=== PATIENT | female | born 1990 | race Caucasian/White ===

== ENCOUNTER 2018-06-22 18:55 | Emergency (ER) | payer OTHER ==
[~2018-06-22] VITALS: Ht 167.6 cm; Wt 106.8 kg
[2018-06-22 19:03] VITALS: TEMP 98
[2018-06-22] MEDS ORDERED: PRENATAL MVI (19:25)
[2018-06-22] MEDS ORDERED: CALCIUM CARBON650 M2 (19:26)
[2018-06-22] MEDS ORDERED: UNISOM25 MG PO (19:26)
[2018-06-22 20:06] LABS: BASO # 0.1 (0.0-0.2); BASO % 0.5 % (0.0-2.0); EOS # 0.1 (0.0-0.7); EOS % 0.6 % (0-4.0); GRAN # 6.3 (1.4-6.5); GRAN % 62.9 % (42.2-75.2); HEMATOCRIT 37.9 % (37.0-47.0); HEMOGLOBIN 12.7 g/dl (12.5-16.0); LYMPH # 2.6 (1.2-3.4); LYMPH % 25.9 % (20.0-51.0); MEAN CELL VOLUME 87 fl (80.0-100.0); MEAN CORPUSCULAR HEMOGLOBIN 29 pg (27.0-31.0); MEAN CORPUSCULAR HGB CONC 34 g/dl (33.0-37.0); MEAN PLATELET VOLUME 11.9 fl (7.4-10.4); MONO % 9.4 % (1.7-9.3); PLATELET COUNT 261 K/mm3 (130-400); RED BLOOD COUNT 4.36 M/mm3 (4.10-5.30); REDCELL DISTRIBUTION WIDTH-CV 13.5 % (11.5-14.5)
[2018-06-22 20:12] LABS: ALBUMIN 3.7 gm/dL (3.5-5.0); BILIRUBIN,TOTAL 0.4 mg/dL (0.0-1.0); CALCIUM 9.9 mg/dL (8.4-10.2); CREATININE, serum 0.55 (0.52-1.25); POTASSIUM 3.5 mmol/L (3.4-5.0); TOTAL PROTEIN 7.2 gm/dL (6.4-8.2)
[2018-06-22 20:50] LABS: COLLECTION METHOD CLEAN CATCH
[2018-06-22 20:57] LABS: PH 7 (5-8); URINE APPEARANCE Hazy; URINE BACTERIA Rare /hpf; URINE BILIRUBIN Negative (NEGATIVE); URINE BLOOD Negative (NEGATIVE); URINE COLOR Yellow; URINE GLUCOSE Negative (NEGATIVE); URINE KETONE 1+ (NEGATIVE); URINE LEUKOCYTE ESTERASE Negative (NEGATIVE); URINE NITRATE Negative (NEGATIVE); URINE PROTEIN(semi-quant) Negative (NEGATIVE); URINE RBC 0-2 /hpf; URINE UROBILINOGEN Negative (NEGATIVE)
--- NOTE | 2018-06-22 21:54 | NUR ---
Pt of , 24wks with twins in ER with complaints of migraine. FHR strip completed in ER per ER physican request. EFM and TOCO explained and applied. Pt denies contactins, LOF or vaginal bleeding. Reports good movement. No contractions per TOCO and pt's report. 2246: called and notified of baby A FHR strip 150bpm, no true accelerations, no decels with moderate variablity noted. Baby B FHR strip 140bpms with 10/10 acceleration, no decels with moderate variability. okay with FHR strip and okay for pt to discharge home from OB standpoint. ER nurse notified.
[2018-06-22] MEDS ORDERED: PHENERGAN 25 TA25 MG PO (22:29)
[2018-06-22 23:20] VITALS: BP 125/79; PULSE 93
== END 2018-06-22 23:23 | disposition home or self-care (01) ==
LOC: COL.ER 18:55
PROVIDERS: Emergency Medicine
DX: G43.909 Migraine, unspecified, not intractable, without status migrainosus (principal)
CPT/HCPCS: J1200; J2550; J7030

== ENCOUNTER 2018-09-08 21:58 | Outpatient (CLI) | payer OTHER ==
[~2018-09-08] VITALS: Ht 165.1 cm; Wt 123.6 kg
[~2018-09-08 21:58] MED LIST: CALCIUM CARBON650 M2; PHENERGAN 25 TA25 MG PO; PRENATAL MVI; UNISOM25 MG PO
[2018-09-08] MEDS ORDERED: NORMODYNE100 MG PO (22:30)
[2018-09-08] MEDS ORDERED: TYLENOL 325MG325 MG PO (22:31)
[2018-09-08 22:45] VITALS: BP 142/90; PULSE 92
[2018-09-08 23:05] VITALS: BP 156/87; PULSE 86
[2018-09-08 23:20] VITALS: BP 167/79; PULSE 86
[2018-09-08] MEDS ORDERED: PROMETRIUM200 M1 PO (23:20)
== END 2018-09-09 00:05 ==
LOC: LDRO 21:58 → LDR 22:08 → LDRO 09-09 00:05
DX: O14.93 Unspecified pre-eclampsia, third trimester (principal); O30.003 Twin pregnancy, unspecified number of placenta and unspecified number of amniotic sacs, third trimester; O99.89 Other specified diseases and conditions complicating pregnancy, childbirth and the puerperium; R51 Headache; Z3A.35 35 weeks gestation of pregnancy
CPT/HCPCS: OP

== ENCOUNTER 2018-09-15 08:58 | Inpatient (IN) | payer OTHER ==
[~2018-09-15] VITALS: Ht 165.2 cm; Wt 123.2 kg
[2018-09-15] VITALS (16 sets, daily range): BP systolic 127–149; BP diastolic 64–95; PULSE 74–95; TEMP 98.3–98.5
[~2018-09-15 08:58] MED LIST changes: +NORMODYNE100 MG PO; +PROMETRIUM200 M1 PO; +TYLENOL 325MG325 MG PO
--- NOTE | 2018-09-15 14:30 | NUR ---
Pt arrives on unit ambulatory with spouse for scheduled csection. Changed into clean gown. EFM and toco x 2 applied. VSS. IV started in LH. Labs drawn. LR infusing. Denies vaginal bleeding, regular ctx and LOF. Reports GFM. Admission assessment completed. Consents signed. Pt updated on POC. Safety reviewed. Bed locked in low position. Call light within reach. No questions or concerns at this time.
[2018-09-15 15:14] LABS: BASO # 0.1 (0.0-0.2); BASO % 0.9 % (0.0-2.0); EOS # 0.1 (0.0-0.7); EOS % 0.9 % (0-4.0); GRAN # 7.2 (1.4-6.5); GRAN % 68.1 % (42.2-75.2); HEMATOCRIT 42.8 % (37.0-47.0); HEMOGLOBIN 13.7 g/dl (12.5-16.0); LYMPH # 2.2 (1.2-3.4); LYMPH % 20.7 % (20.0-51.0); MEAN CELL VOLUME 88 fl (80.0-100.0); MEAN CORPUSCULAR HEMOGLOBIN 28 pg (27.0-31.0); MEAN CORPUSCULAR HGB CONC 32 g/dl (33.0-37.0); MEAN PLATELET VOLUME 13.4 fl (7.4-10.4); MONO # 0.9 (0.1-0.6); MONO % 8.5 % (1.7-9.3); PLATELET COUNT 139 K/mm3 (130-400); RED BLOOD COUNT 4.89 M/mm3 (4.10-5.30); REDCELL DISTRIBUTION WIDTH-CV 14.6 % (11.5-14.5)
[2018-09-16 01:15] VITALS: BP 141/76; PULSE 88; TEMP 98.8
[2018-09-16 04:57] VITALS: BP 139/72; PULSE 80; TEMP 98.9
[2018-09-16 07:00] VITALS: BP 144/93; PULSE 76; TEMP 97.6
--- NOTE | 2018-09-16 11:26 | NUR ---
Initial visit; Parents thanked [employer] for offering congratulations and God's blessings for the of their twin daughters. [employer] thanked parents for choosing [facility].
[2018-09-16 11:45] VITALS: BP 148/95; PULSE 89; TEMP 97.4
[2018-09-16 16:11] VITALS: BP 136/78; PULSE 90; TEMP 97.8
[2018-09-16 21:00] VITALS: BP 148/90; PULSE 92; TEMP 98.8
[2018-09-17 02:30] VITALS: BP 161/89; PULSE 101; TEMP 97.6
[2018-09-17 06:45] VITALS: BP 152/82; PULSE 93; TEMP 98.7
[2018-09-17 13:00] VITALS: BP 144/93; PULSE 104; TEMP 97.6
[2018-09-17 16:37] VITALS: BP 153/96; PULSE 101; TEMP 99.1
[2018-09-17 20:40] VITALS: BP 134/73; PULSE 99; TEMP 97.6
[2018-09-18 00:57] VITALS: BP 154/85; PULSE 101
[2018-09-18 08:28] VITALS: BP 153/102; PULSE 94; TEMP 98
[2018-09-18 12:22] VITALS: BP 144/90
[2018-09-18 16:00] VITALS: BP 144/91; PULSE 92; TEMP 97.6
[2018-09-18 20:10] VITALS: BP 152/65; PULSE 98; TEMP 98.7
[2018-09-18] MEDS ORDERED: MOTRIN 800800 MG/TAB PO (22:13)
[2018-09-18] MEDS ORDERED: NORMODYNE200 MG PO (22:14)
[2018-09-18] MEDS ORDERED: PERCOCET 325 MG1 TA2 PO (22:14)
[2018-09-19 00:15] VITALS: BP 145/97; PULSE 92; TEMP 98.7
[2018-09-19 02:45] VITALS: BP 147/95; PULSE 89
[2018-09-19 08:45] VITALS: BP 147/87; PULSE 99; TEMP 97.8
--- NOTE | 2018-09-19 12:45 | NUR ---
Discharge instructions given and patient understands/agrees and signs papers. Patient to [facility] status and informed on plan.
== END 2018-09-19 12:45 | disposition home or self-care (01) | DRG 788 ==
LOC: LDR 08:58 → OB 14:23
PROVIDERS: ADMIT Obstetrics & Gynecology
PROC: 10D00Z1 Extraction of Products of Conception, Low, Open Approach (ICD-10-PCS; principal; 2018-09-15)
DX: O14.94 Unspecified pre-eclampsia, complicating childbirth (principal); O30.043 Twin pregnancy, dichorionic/diamniotic, third trimester; O99.214 Obesity complicating childbirth; O36.5931 Maternal care for other known or suspected poor fetal growth, third trimester, fetus 1; O69.81X1 Labor and delivery complicated by cord around neck, without compression, fetus 1; O75.89 Other specified complications of labor and delivery; E66.01 Morbid (severe) obesity due to excess calories; O36.5932 Maternal care for other known or suspected poor fetal growth, third trimester, fetus 2; Z3A.36 36 weeks gestation of pregnancy; Z37.2 Twins, both liveborn
CPT/HCPCS: J0690; J1885; J2270; J2370; J2405; J2590; J3010; J7120

== ENCOUNTER → 2018-09-20 | Outpatient (CLI) | payer OTHER ==
[~2018-09-20] MED LIST changes: +MOTRIN 800800 MG/TAB PO; +NORMODYNE200 MG PO; +PERCOCET 325 MG1 TA2 PO
[2018-09-20 16:32] LABS: BASO # 0.1 (0.0-0.2); BASO % 0.7 % (0.0-2.0); EOS # 0.2 (0.0-0.7); EOS % 2.1 % (0-4.0); GRAN # 4.9 (1.4-6.5); GRAN % 63.1 % (42.2-75.2); HEMOGLOBIN 11.2 g/dl (12.5-16.0); LYMPH # 1.9 (1.2-3.4); LYMPH % 25.1 % (20.0-51.0); MEAN CELL VOLUME 88 fl (80.0-100.0); MEAN CORPUSCULAR HEMOGLOBIN 29 pg (27.0-31.0); MEAN CORPUSCULAR HGB CONC 33 g/dl (33.0-37.0); MEAN PLATELET VOLUME 11.1 fl (7.4-10.4); MONO # 0.6 (0.1-0.6); MONO % 7.8 % (1.7-9.3); PLATELET COUNT 283 K/mm3 (130-400); RED BLOOD COUNT 3.91 M/mm3 (4.10-5.30); REDCELL DISTRIBUTION WIDTH-CV 14.7 % (11.5-14.5)
[2018-09-20 16:42] LABS: HEMATOCRIT 34.3 % (37.0-47.0)
== END ==
LOC: COL.LAB 15:55
PROVIDERS: Obstetrics & Gynecology
DX: Z87.59 Personal history of other complications of pregnancy, childbirth and the puerperium (principal)

== ENCOUNTER → 2018-10-10 | Outpatient (CLI) | payer OTHER ==
--- NOTE | 2018-10-10 13:15 | NUR ---
Pt, Shaniqua Cardona, presents to outpatient consult with 3.5 week old twin babies, Coby and Eusebia Cardona to evaluate ability. They are accompanied by her spouse, Shiv Cardona. The twins were born at 36.3 weeks gestation by c/section. Pt has developed pre-eclampsia was the reason for the early delivery. Following is Lucila's report: Coby weighed 4#0oz (1820 gms) at . Her discharge weight was 4#1oz (1835 gms) at 8 days of age. At her first appointment with Dr. Cardenas she weighed 4#3oz, at 12 days of age. Today her weight is 5#0.6oz (2284 gms). Coby has been bottle fed about every 3 hours, she is eating 60 to 80ml per feeding. Of this about every 4th bottle is expressed breast milk, otherwise formula is fed. Pt has recently increased pumping effort and reports a bit better collections, but supply is just under half of what she needs to make full breastmilk bottles. She now pumps 7 times per 24 hours, collecting 60-80ml. Pt has held off pumping since last noc to allow babies best chance at transfer with full breasts. Today Coby was not able to directly latch to the breast. A nipple shield allowed her to latch but her effort was intermittent. After nursing Coby transfers 6ml. She was bottle fed but pretty sloppy so was weighed and had a 42 gm gain from formula. Total intake at this feeding was 48 mls. POC: Continue pumping and herbal supplements to increase milk supply. Consider offer a once daily for now. Supplement after with normal amount of supplement. F/U: One month appt as scheduled with Dr. Cardenas. LC to be scheduled as pt desires in 1-2 weeks. Questions invited and answered.
--- NOTE | 2018-10-10 13:52 | NUR ---
Pt, Shaniqua Cardona, presents to outpatient consult with 3.5week old twin babies, Coby and Eusebia Cardona, to evaluate breastfeeeding ability. They are accompanied by her spouse, Ulysses Cardona. The twins were born at 36.3 weeks gestation by c/section. Pt had developed pre-eclampsis, causing the reason for the early delivery. Following is Eusebia's reports: Eusebia weighed 4#5.5oz (1970 gms) at . Her discharge weight was 4#7oz (2020 gms) at 8 days of age. At her first appointment with Dr. Etienne she weighed 4#10oz, at at days of age. Today her weight is 5#7.5oz (2480 gms). Eusebia has been bottle fed about every 3 hours, she is eating 60-80ml per feeding. Of this, about every 4th bottle is expressed breastmilk, otherwise for is fed. Pt has recently increased pumping effort and reports a bit better collections, but supply is just under half of what she need to make a full supply. She now pumps 7 times per 24 hours, collecting 60-80ml. Pt has held off pumping since last noc to allow babies best chance at transfer with full breasts. At this feeding Eusebia initially nursed with the nipple shield, transfering 10ml per pre and post feed weight. She is then latched without the shield and has another 12ml gain. She if fed 48ml by bottle, per post feed weight for a total intake of 70ml. POC: Continue pumping and herbal supplements to increase milk supply. Consider offering once daily for now, supplement after with slightly less than normal volume after . F/U: One month appointment as scheduled wiht Dr. Cardenas. LC to be scheduled as pt desires in 1-2 weeks. Questions invited and answered.
== END ==
LOC: LAC 11:44
DX: Z39.1 Encounter for care and examination of lactating mother (principal); Z71.89 Other specified counseling